=== PATIENT | male | born 1985 | race Caucasian/White ===

== ENCOUNTER 2019-03-24 07:37 | Day surgery (SDC) | payer OTHER ==
[2019-03-23 12:53] VITALS: BMI 26.4
[2019-03-24 07:59] LABS: #Basophils 0.1 thou/uL (0.0-0.2); #Eosinphils 0.1 thou/uL (0.0-0.7); #Lymphocytes 4.6 thou/uL (1.20-3.40); #Monocytes 0.9 thou/uL (0.11-0.59); #Neutrophils 7.6 thou/uL (1.40-6.50); %Basophils 0.9 % (0.0-1.0); %Eosinophils 0.6 % (0.0-10.0); %Lymphocytes 34.4 % (21.0-51.0); %Monocytes 6.8 % (0.0-10.0); %Neutrophils 57.3 % (42.0-75.0); Hemoglobin 16.3 g/dL (14.0-18.0); Mean Corpuscular HGB CONC 36.1 g/dL (32.0-36.0); Mean Corpuscular Hemoglobin 33.6 pg (27.0-31.0); Mean Platelet Volume 7.2 fL (7.4-10.4); Platelet Count 320 thou/uL (130-400); Red Blood Cell (RBC) Count 4.85 mill/uL (4.70-6.10); White Blood Cell (WBC) Count 13.3 thou/uL (4.8-10.8)
[2019-03-24 08:08] LABS: PTT 25.9 SEC (22.9-36.1); Prothrombin Time 13.4 SEC (12.0-14.7)
--- NOTE | 2019-03-24 09:24 | ULT ---
US Hepatic Doppler History: Pituitary hemachromatosis Comparison: None. Findings: Real-time grayscale, color, and spectral analysis of the liver was performed. Diffuse increased hepatic echotexture. Visualized portion of the aorta and IVC are unremarkable as we ll as the pancreas. No hepatic mass. Portal vein is patent and antegrade flow. No intrahepatic or extrahepatic biliary dilatation. Normal directional vascular flow in the liver. Gallbladder is normal. No pericholecystic fluid. Common bile duct measures 3 mm, normal. The spleen measures 12.7 cm in length Impression: 1. Diffuse increased hepatic echotexture suggesting steatosis or hepatocellular dysfunction. 2. Splenomegaly can be seen with early portal hypertension.
[2019-03-24] MEDS ORDERED: Sodium Bicarbonate 2.5 MEQ/5 ML VIAL ONE (10:09)
[2019-03-24] MEDS ORDERED: Fentanyl 100 MCG/2 ML VIAL ONE (10:09)
[2019-03-24] MEDS ORDERED: Midazolam HCl 2 mg/2 ml Vial ONE (10:10)
[2019-03-24] MEDS ORDERED: Lidocaine 1% PF 5 ML VIAL ONE (10:32)
--- NOTE | 2019-03-24 11:41 | ULT ---
US Hepatic Bx History: Hereditary hemochromatosis Comparison: Ultrasound same day Findings: Patient was brought to the ultrasound suite. Questions were answered. Informed consent was obtained. Timeout performed. The patient's right upper quadrant prepped and draped in normal sterile fashion. Using ultrasound darius dance after adequate local anesthesia a total of 2 12 mm 18-gauge cores were obtained. Patient tolerated the procedure well without complication. Impression: Technically successful ultrasound-guided random liver biopsy.
== END 2019-03-24 12:00 | disposition home or self-care (01) ==
LOC: ULT 07:37
PROVIDERS: ATTEND Internal Medicine Gastroenterology
PROC: BF45ZZZ Ultrasonography of Liver (ICD-10-PCS; principal; 2019-03-24)
PROC: 0FB03ZX Excision of Liver, Percutaneous Approach, Diagnostic (ICD-10-PCS; principal; 2019-03-24)
DX: E83.110 Hereditary hemochromatosis (principal)
CPT/HCPCS: 36415; 47000; 76705; 76942; 85025; 85610; 85730; 88307; 88313; J2001; J2250; J3010

== ENCOUNTER 2019-04-28 11:54 | Outpatient (CLI) | payer OTHER ==
--- NOTE | 2019-04-28 15:06 | MRI ---
MRI BRAIN AND INTERNAL AUDITORY CANALS WITH AND WITHOUT CONTRAST: DATE: 04/28/19 HISTORY: 33-year-old male with ICD-10: H90.3, sensorineural hearing loss, bilaterally. COMPARISON: None. TECHNIQUE: Multiple sequences obtained in axial, sagittal, and coronal planes; both whole brain images and thin slices through the IAC's, pre and post IV injection of gadolinium-based contrast agent: 18 mL Multiha nce. FINDINGS: There is an approximately 2.5 x 4.5 x 3 cm extra-axial intracranial fluid collection superior to the left cerebral convexity, displacing adjacent left vertex gyri, and also scalloping and thinning the c alvarium. No abnormal enhancement or solid component associated with this. No intra-axial signal abnormality or enhancement. Ventricle are normal in size and configuration. No other mass effect. No midline shift. No restricted diffusion. The dural venous sinuses are patent and clear. Extensive, heterogeneous signal abnormality throughout much of the right mastoid air cells with mild enhancement. Normal morphology, with no abnormal enhancement, involving bilateral 7th-8th nerve complexes, bilater al cochleae, right vestibule, and right semicircular canals. There is nonvisualization of all of the left semicircular canals on all pulse sequences. The left ves tibule has mixed abnormal signal (on the 3D CISS or FIESTA - equivalent sequence) and has abnormal, m ild diffuse enhancement. IMPRESSION: 1. Abnormal left labyrinth: nonvisualization of left semicircular canals, and abnormal enhanceme nt of left vestibule. Possibilities include schwannoma involving the left vestibule (but not the vest ibular nerve) and resulting occlusion of left semicircular canals; versus left sided labyrinthitis in volving the vestibule, with occlusion of left semicircular canals; and/or left labyrinthitis ossifica ns. 2. A noncontrast CT of the temporal bones may be useful. 3. Right mastoid effusion. 4. Arachnoid cyst over the left cerebral convexity. SHY Rae POS: OLLIE
== END 2019-04-28 11:55 | disposition home or self-care (01) ==
LOC: SCSMRI 11:54
PROVIDERS: ATTEND Otolaryngology Otology & Neurotology
DX: H90.3 Sensorineural hearing loss, bilateral (principal); G93.0 Cerebral cysts; H74.8X1 Other specified disorders of right middle ear and mastoid
CPT/HCPCS: 70553